=== PATIENT | female | born 1970 | race Caucasian/White ===

== ENCOUNTER 2018-09-04 14:20 | Emergency (ER) | payer MEDICAID ==
[~2018-09-04] VITALS: Ht 167.6 cm; Wt 64.0 kg
[2018-09-04 21:02] LABS: HEMATOCRIT. 44.1 % (36.0-48.0); HEMOGLOBIN. 14.7 g/dL (12.0-16.0); MEAN CORPUSCULAR HEMOGLOBIN 32.7 pg (28.0-32.0); MEAN CORPUSCULAR VOLUME 98.3 fL (81.0-99.0); MEAN PLATELET VOLUME 8.2 fl (7.4-10.4); PLATELET 337 x1000/uL (130-400); RED BLOOD CELL COUNT 4.49 mill/uL (4.2-5.4); RED CELL DISTRIBUTION WIDTH 17.8 % (11.6-14.6)
[2018-09-04 21:06] LABS: CLARITY URINE CLOUDY (CLEAR); COLOR URINE YELLOW (YELLOW); KETONES URINE NEGATIVE (NEGATIVE); LEUKOCYTE ESTERASE URINE 3+ (NEGATIVE); NITRITE URINE NEGATIVE (NEGATIVE); OCCULT BLOOD URINE NEGATIVE (NEGATIVE); PH URINE 6.5 (4.5-8.0); PROTEIN URINE NEGATIVE (NEGATIVE); SPECIFIC GRAVITY URINE 1.006 (1.005-1.030); UROBILINOGEN URINE 0.2 E.U./dL (0.2-1.0)
[2018-09-04 21:09] LABS: CHLORIDE 110 mEq/L (98-107)
[2018-09-04 21:16] LABS: PROTHROMBIN TIME 10.2 sec (9.6-11.0)
[2018-09-04 21:21] LABS: ETHANOL BLOOD 425 mg/dL
[2018-09-04] MEDS ORDERED: SODIUM CHLORIDE 0.9% 1,000 ML IV ONE (21:23)
[2018-09-04] MEDS ORDERED: CEFTRIAXONE 1 G PREMIX 50 ML IV SCH (21:30)
[2018-09-04 21:38] LABS: PLATELET ESTIMATE NORMAL
[2018-09-04] MEDS ORDERED: LORAZEPAM 2MG/ML CPJ IV ONE (23:00)
[2018-09-04] MEDS ORDERED: ONDANSETRON HCL 4MG/2ML INJ IV ONE (23:00)
[2018-09-05] MEDS ORDERED: PERMETHRIN 5% CREAM 60GM TOP ONE (08:15)
[2018-09-05] MEDS ORDERED: CHLORDIAZEPOXIDE 25MG CAPSULE PO ONE (11:15)
[2018-09-05 12:21] VITALS: BP 112/64
== END 2018-09-05 12:34 | disposition home or self-care (01) ==
LOC: ER 14:20
DX: B86 Scabies (principal); N39.0 Urinary tract infection, site not specified; I10 Essential (primary) hypertension; F10.229 Alcohol dependence with intoxication, unspecified; Y90.8 Blood alcohol level of 240 mg/100 ml or more; Z59.0 Homelessness
CPT/HCPCS: 36415; 80053; 80320; 81003; 81025; 85025; 85610; 96365; 96375; 99283; J0696; J2060; J2405; J7030; Z7610; G0480

== ENCOUNTER 2018-10-09 19:48 | Emergency (ER) | payer MEDICAID | END 2018-10-09 20:05 | disposition left against medical advice (07) | LOC: ER 19:48 | DX: R10.9 Unspecified abdominal pain (principal); Z53.21 Procedure and treatment not carried out due to patient leaving prior to being seen by health care provider ==

== ENCOUNTER 2018-10-30 01:56 | Emergency (ER) | payer MEDICAID ==
[~2018-10-30] VITALS: Ht 167.6 cm; Wt 68.0 kg
[2018-10-30] MEDS ORDERED: ONDANSETRON HCL 4MG/2ML INJ IV STA (02:48)
[2018-10-30] MEDS ORDERED: MAGNESIUM/ALUMINUM HYDROXIDE/SIMETHICONE 30ML UDC PO STA (02:48)
[2018-10-30] MEDS ORDERED: VISCOUS LIDOCAINE 2% 15 ML UDC PO STA (02:48)
[2018-10-30] MEDS ORDERED: SODIUM CHLORIDE 0.9% 1,000 ML IV ONE (02:48)
[2018-10-30] MEDS ORDERED: PREDNISONE 20MG TABLET PO ONE (03:00)
[2018-10-30 03:01] LABS: EOSINOPHILS % 1.3 % (0.0-5.0); HEMATOCRIT. 34.2 % (36.0-48.0); HEMOGLOBIN. 11.6 g/dL (12.0-16.0); LYMPHOCYTES % 27.6 % (20.0-50.0); MEAN CORPUSCULAR HEMOGLOBIN 32.8 pg (28.0-32.0); MEAN CORPUSCULAR VOLUME 96.4 fL (81.0-99.0); MEAN PLATELET VOLUME 8.1 fl (7.4-10.4); NEUTROPHILS % 60.1 % (40.0-76.0); PLATELET 306 x1000/uL (130-400); RED BLOOD CELL COUNT 3.55 mill/uL (4.2-5.4)
[2018-10-30 03:12] LABS: CHLORIDE 106 mEq/L (98-107)
[2018-10-30 03:19] LABS: ETHANOL BLOOD 39 mg/dL
[2018-10-30 03:32] LABS: CLARITY URINE TURBID (CLEAR); COLOR URINE DARK YELLOW (YELLOW); KETONES URINE TRACE (NEGATIVE); LEUKOCYTE ESTERASE URINE 2+ (NEGATIVE); NITRITE URINE POSITIVE (NEGATIVE); OCCULT BLOOD URINE 1+ (NEGATIVE); PROTEIN URINE 2+ (NEGATIVE); SPECIFIC GRAVITY URINE 1.032 (1.005-1.030)
[2018-10-30] MEDS ORDERED: CEFTRIAXONE 1 G PREMIX 50 ML IV SCH (03:45)
[2018-10-30 04:06] LABS: *BARBITURATES SCREEN URINE NEGATIVE (NEGATIVE); *BENZODIAZEPINES SCREEN URINE NEGATIVE (NEGATIVE); *COCAINE SCREEN URINE NEGATIVE (NEGATIVE); METHADONE URINE SCREEN NEGATIVE (NEGATIVE); OPIATES URINE SCREEN NEGATIVE (NEGATIVE)
[2018-10-30 04:07] LABS: PHENCYCLIDINE URINE SCREEN NEGATIVE (NEGATIVE)
[2018-10-30 04:23] LABS: *AMPHETAMINES SCREEN URINE PRESUMTIVE POSITIVE (NEGATIVE); CANNABINOID URINE SCREEN PRESUMTIVE POSITIVE (NEGATIVE)
[2018-10-30] MEDS ORDERED: POTASSIUM CHLORIDE INJ 40 MEQ in DEXT 5% WATER 250 ML IV SCH (04:30)
[2018-10-30] MEDS ORDERED: POTASSIUM CHLORIDE 20MEQ TABLET SR PO ONE (05:00)
[2018-10-30 05:40] VITALS: BP 133/77
== END 2018-10-30 05:40 | disposition home or self-care (01) ==
LOC: ER 01:56
DX: N39.0 Urinary tract infection, site not specified (principal); E87.6 Hypokalemia; F19.10 Other psychoactive substance abuse, uncomplicated; L30.9 Dermatitis, unspecified; F10.20 Alcohol dependence, uncomplicated; Y90.1 Blood alcohol level of 20-39 mg/100 ml; J45.909 Unspecified asthma, uncomplicated; F12.10 Cannabis abuse, uncomplicated; Z98.890 Other specified postprocedural states; Z96.659 Presence of unspecified artificial knee joint; Z88.2 Allergy status to sulfonamides
CPT/HCPCS: 36415; 80053; 80305; 80320; 81003; 81025; 83690; 85025; 87077; 87086; 87186; 93005; 96365; 96375; 99284; J0696; J2405; J3480; J7030; J7060; J7512; G0480

== ENCOUNTER 2018-11-16 21:20 | Emergency (ER) | payer OTHER, MEDICAID ==
[~2018-11-16] VITALS: Ht 167.6 cm; Wt 63.0 kg
[2018-11-16] MEDS ORDERED: SODIUM CHLORIDE 0.9% 1,000 ML IV ONE (22:00)
[2018-11-16] MEDS ORDERED: CHLORDIAZEPOXIDE 25MG CAPSULE PO ONE (22:00)
[2018-11-16 22:43] LABS: BASOPHILS % 0.4 % (0.0-2.0); EOSINOPHILS % 2.2 % (0.0-5.0); HEMATOCRIT. 33.8 % (36.0-48.0); HEMOGLOBIN. 11.3 g/dL (12.0-16.0); LYMPHOCYTES % 44.8 % (20.0-50.0); MEAN CORPUSCULAR HEMOGLOBIN 32.2 pg (28.0-32.0); MEAN CORPUSCULAR VOLUME 96.6 fL (81.0-99.0); MEAN PLATELET VOLUME 8.5 fl (7.4-10.4); MONOCYTES % 6.3 % (2.0-8.0); NEUTROPHILS % 46.3 % (40.0-76.0); PLATELET 449 x1000/uL (130-400); RED CELL DISTRIBUTION WIDTH 15.6 % (11.6-14.6)
[2018-11-16 22:45] LABS: CHLORIDE 115 mEq/L (98-107)
[2018-11-16 23:01] LABS: ETHANOL BLOOD 294 mg/dL
[2018-11-17 00:14] LABS: CLARITY URINE CLOUDY (CLEAR); COLOR URINE YELLOW (YELLOW); KETONES URINE NEGATIVE (NEGATIVE); LEUKOCYTE ESTERASE URINE NEGATIVE (NEGATIVE); NITRITE URINE NEGATIVE (NEGATIVE); OCCULT BLOOD URINE NEGATIVE (NEGATIVE); PROTEIN URINE NEGATIVE (NEGATIVE); SPECIFIC GRAVITY URINE 1.009 (1.005-1.030); UROBILINOGEN URINE 0.2 E.U./dL (0.2-1.0)
[2018-11-17 00:45] LABS: *AMPHETAMINES SCREEN URINE NEGATIVE (NEGATIVE); *BARBITURATES SCREEN URINE NEGATIVE (NEGATIVE); *BENZODIAZEPINES SCREEN URINE NEGATIVE (NEGATIVE)
[2018-11-17 00:47] LABS: CANNABINOID URINE SCREEN NEGATIVE (NEGATIVE); METHADONE URINE SCREEN NEGATIVE (NEGATIVE); OPIATES URINE SCREEN NEGATIVE (NEGATIVE); PHENCYCLIDINE URINE SCREEN NEGATIVE (NEGATIVE)
[2018-11-17 00:57] LABS: *COCAINE SCREEN URINE PRESUMTIVE POSITIVE (NEGATIVE)
[2018-11-17 07:42] VITALS: BP 110/60
== END 2018-11-17 08:03 | disposition home or self-care (01) ==
LOC: ER 11-17 00:21
DX: R07.9 Chest pain, unspecified (principal); F10.229 Alcohol dependence with intoxication, unspecified; J45.909 Unspecified asthma, uncomplicated; R56.9 Unspecified convulsions; F12.10 Cannabis abuse, uncomplicated; F17.200 Nicotine dependence, unspecified, uncomplicated; Z59.0 Homelessness; Z98.890 Other specified postprocedural states; Z96.659 Presence of unspecified artificial knee joint; Z88.2 Allergy status to sulfonamides; Y90.8 Blood alcohol level of 240 mg/100 ml or more
CPT/HCPCS: 36415; 71045; 80053; 80305; 80320; 81003; 81025; 84484; 85025; 93005; 99284; J7030; G0480

== ENCOUNTER 2018-11-23 09:50 | Emergency (ER) | payer MEDICAID, OTHER ==
[~2018-11-23] VITALS: Ht 170.2 cm; Wt 82.0 kg
[2018-11-23] MEDS ORDERED: KETOROLAC 60MG/2ML VIAL IM ONE (10:15)
[2018-11-23 10:27] VITALS: BP 136/90
[2018-11-23 11:46] LABS: *AMPHETAMINES SCREEN URINE NEGATIVE (NEGATIVE); *BARBITURATES SCREEN URINE NEGATIVE (NEGATIVE); *BENZODIAZEPINES SCREEN URINE NEGATIVE (NEGATIVE); *COCAINE SCREEN URINE NEGATIVE (NEGATIVE); CANNABINOID URINE SCREEN NEGATIVE (NEGATIVE)
[2018-11-23 11:48] LABS: METHADONE URINE SCREEN NEGATIVE (NEGATIVE); OPIATES URINE SCREEN NEGATIVE (NEGATIVE); PHENCYCLIDINE URINE SCREEN NEGATIVE (NEGATIVE)
== END 2018-11-23 11:42 | disposition home or self-care (01) ==
LOC: ER 09:50
DX: S49.82XA Other specified injuries of left shoulder and upper arm, initial encounter (principal); Y04.2XXA Assault by strike against or bumped into by another person, initial encounter; Y93.89 Activity, other specified; Y92.410 Unspecified street and highway as the place of occurrence of the external cause
CPT/HCPCS: 29505; 71045; 73030; 80305; 81025; 96372; 99284; J1885

== ENCOUNTER 2018-11-25 01:18 | Emergency (ER) | payer MEDICAID | END 2018-11-25 01:40 | disposition left against medical advice (07) | LOC: ER 01:18 | DX: R07.9 Chest pain, unspecified (principal); Z53.21 Procedure and treatment not carried out due to patient leaving prior to being seen by health care provider ==

== ENCOUNTER 2018-11-26 04:10 | Emergency (ER) | payer MEDICAID ==
[~2018-11-26] VITALS: Ht 167.6 cm; Wt 66.0 kg
[2018-11-26] MEDS ORDERED: ACETAMINOPHEN 325MG TABLET PO ONE (05:15)
[2018-11-26 10:00] VITALS: BP 117/78
== END 2018-11-26 11:00 | disposition left against medical advice (07) ==
LOC: ER 04:10
DX: S93.401A Sprain of unspecified ligament of right ankle, initial encounter (principal); S43.402A Unspecified sprain of left shoulder joint, initial encounter; T74.21XA Adult sexual abuse, confirmed, initial encounter; J45.909 Unspecified asthma, uncomplicated; F12.10 Cannabis abuse, uncomplicated; F17.200 Nicotine dependence, unspecified, uncomplicated; Z96.659 Presence of unspecified artificial knee joint; Z88.2 Allergy status to sulfonamides; X58.XXXA Exposure to other specified factors, initial encounter; Y93.89 Activity, other specified; Y92.89 Other specified places as the place of occurrence of the external cause; Y99.8 Other external cause status
CPT/HCPCS: 73030; 73610; 81025; 99283; Z7610